=== PATIENT | male | born 1975 ===

== ENCOUNTER 2024-11-27 12:18 | Emergency (ER) | payer OTHER ==
[~2024-11-27] VITALS: Ht 180.3 cm; Wt 72.6 kg
[2024-11-27] MEDS ORDERED: DEXAMETHASONE SODIUM PHOSPHATE 4 MG/ML VIAL IM ONE (13:15)
[2024-11-27] MEDS ORDERED: KETOROLAC TROMETHAMINE 60 MG VIAL IM ONE (13:15)
[2024-11-27] MEDS ORDERED: DEXAMETHASONE SODIUM PHOSPHATE 4 MG/ML VIAL ONE (13:26)
[2024-11-27] MEDS ORDERED: IBU600 MG PO (15:17)
== END 2024-11-27 15:00 | disposition left against medical advice (07) ==
LOC: ER 12:20
DX: M75.52 Bursitis of left shoulder (principal); M25.512 Pain in left shoulder; M75.101 Unspecified rotator cuff tear or rupture of right shoulder, not specified as traumatic